=== PATIENT | female | born 1960 | race Caucasian/White ===

== ENCOUNTER 2018-04-18 09:04 | Day surgery (SDC) | payer BC, OTHER ==
--- NOTE | 2018-03-25 06:27 | HP ---
PREOP HISTORY AND PHYSICAL: DATE OF ADMISSION: CHIEF COMPLAINT: Left ring finger triggering. HISTORY OF PRESENT ILLNESS: Radha is a 58-year-old woman who has triggering of her left ring finger and has failed conservative treatment. She has had several injections. Symptoms are persistent and recurrent. She presents now for a left ring finger trigger release. PAST MEDICAL HISTORY: 1. Hypothyroidism. 2. Depression. 3. History of supraventricular tachycardia, which has not been present for many years. PAST SURGICAL HISTORY: Knee replacement and bariatric surgery. MEDICATIONS: 1. Synthroid 112 mcg p.o. daily. 2. Cymbalta 20 mg p.o. b.i.d. 3. Tenormin 25 mg one-half a tablet p.o. daily. 4. Antivert 12.5 mg p.o. p.r.n. 5. Valtrex 500 mg p.o. daily p.r.n. 6. Multivitamin. 7. Calcium plus vitamin D. 8. Vitamin B12. 9. Vitamin D3. ALLERGIES: To SULFA and CODEINE. FAMILY HISTORY: Cancer. SOCIAL HISTORY: She lives with her . She works as a nurse. She denies ever using tobacco. She denies alcohol use. She exercises very regularly. PHYSICAL EXAMINATION VITAL SIGNS: She is 66 inches tall, weighs 180 pounds. Blood pressure 118/70, pulse 64. HEENT: Unremarkable. She has good range of motion of her neck without pain. No masses are palpated. Eye movements are concentric. LUNGS: Clear to auscultation. Good inspiratory effort. No wheezing. CARDIAC: Regular rate and rhythm without murmur. PERIPHERAL VASCULAR: She has palpable pulses and no peripheral edema. Neurologically, he is alert and oriented without focal deficits. EXTREMITIES: She has tenderness at the A1 sung of her left ring finger. She cannot make a full fist. She lacks a little bit of finger extension as well. Skin is intact. Neurovascular function is intact. IMPRESSION: Left ring finger trigger finger. PLAN: Plan is for a left ring finger trigger release. The surgical procedure, risks, and benefits were explained to the patient today and she agrees to proceed. The patient will follow up approximately 10 days postop. [id number]/[facility] #: [id number] [facility]PITALCarter
[~2018-04-18 09:04] MED LIST: Acetaminophen TAB* 325 MG PO ONE; Buffered Lidocaine 0.9% SYRIN* 5 ML/SYR SYRINGE INTRADERM ONE; Dexamethasone TAB* 4 MG ONE; Dexamethasone TAB* 4 MG PO ONE; DiMENhydriNATE IV* 50 MG/ML VIAL IV PUSH PRN; Famotidine IV* 10 MG/ML 2 ML (20 mg) IV ONE; Famotidine IV* 10 MG/ML 2 ML (20 mg) ONE; Morphine VIAL* 4 MG/ML VIAL (1 ml vial) IV PRN; Naloxone* 0.4 MG/ML 1 ML VIAL IV PRN; Ondansetron ODT TAB* 4 MG ONE; Ondansetron TAB* 4 MG PO ONE; Scopolamine 1.5 mg* PATCH TRANSDERM ONE; oxyCODONE/Acetamin 5/325 MG* TAB PO PRN
[2018-04-18] MEDS ORDERED: Lidocaine 1% INJ* 10 MG/ML 30 ML SDV ONE (09:28)
[2018-04-18] MEDS ORDERED: Midazolam* 1 MG/ML 5 ML VIAL (5 MG) ONE (09:36)
[2018-04-18] MEDS ORDERED: Propofol* 10 MG/ML 20 ML BTL IV PUSH ONE (10:23)
[2018-04-18] MEDS ORDERED: Lidocaine 2% PF * 5 ML VIAL ONE (10:23)
[2018-04-18 10:59] VITALS: BP 105/58
--- NOTE | 2018-04-19 05:56 | OP ---
DATE OF OPERATION: 04/18/18 [facility] DATE OF : 56 SURGEON: Romelia Mayfield MD. [employer]: HECTOR Herrmann. ANESTHESIA: Local MAC. PRE-OP DIAGNOSIS: Left ring finger trigger finger. POST-OP DIAGNOSIS: Left ring finger trigger finger. OPERATIVE PROCEDURE: Left ring finger trigger release. ESTIMATED BLOOD LOSS: Zero. TOURNIQUET TIME: About 7 minutes. INDICATIONS FOR PROCEDURE: Radha is a 58-year-old female with triggering and locking of her left ring finger. She presents for trigger release after failing conservative treatment. DESCRIPTION OF PROCEDURE: The patient was brought to the operating room, was given a sedation anesthetic and a local infiltration of 10 cc of 1% plain lidocaine overlying the A1 sung of her left ring finger. The skin of her left hand and forearm was prepped and draped in the usual sterile fashion. The hand and forearm were exsanguinated and the tourniquet elevated to 250 mmHg. A transverse incision was made over the A1 sung of the right ring finger. We dissected bluntly through the subcutaneous tissue down to the sung. It was incised longitudinally completely releasing the flexor tendons which were in good condition. The wound was irrigated and skin edges reapproximated with 4-0 nylon suture. The wound was dressed with Xeroform, 4x4, Webril, and an Tam wrap. The patient tolerated the procedure well and brought to the recovery room in good condition. [id number]/[facility] #: [id number] MTDD
[2018-04-21] MEDS ORDERED: Scopolamine PATCH Remove* 1 NOTE MISC PATCH OFF ONE (06:00)
== END 2018-04-18 11:01 | disposition home or self-care (01) ==
LOC: OREAST 09:04
PROVIDERS: ATTEND Orthopaedic Surgery
DX: M65.342 Trigger finger, left ring finger (principal); E03.9 Hypothyroidism, unspecified; F32.9 Major depressive disorder, single episode, unspecified; I10 Essential (primary) hypertension
CPT/HCPCS: A9270-GY; J2250; J2704; J8540